=== PATIENT | male | born 1955 | race Caucasian/White ===

== ENCOUNTER → 2018-07-31 | Outpatient (CLI) | payer OTHER ==
--- NOTE | 2018-07-31 15:44 | US ---
EXAMINATION TYPE: US carotid duplex BILAT DATE OF EXAM: 07/31/2018 COMPARISON: NONE CLINICAL HISTORY: R09.89 Carotid Bruit. RT CCA bruit, HTN- on meds, No hx of tia EXAM MEASUREMENTS: RIGHT: Peak Systolic Velocity (PSV) cm/sec ----- Right CCA: 93.0 ----- Right ICA: 96.5 ----- Right ECA: 146.3 ICA/CCA ratio: 1.0 RIGHT: End Diastole cm/sec ----- Right CCA: 17.1 ----- Right ICA: 30.5 ----- Right ECA: 20.4 LEFT: Peak Systolic Velocity (PSV) cm/sec ----- Left CCA: 91.9 ----- Left ICA: 113.4 ----- Left ECA: 145.9 ICA/CCA ratio: 1.2 LEFT: End Diastole cm/sec ----- Left CCA: 21.5 ----- Left ICA: 22.8 ----- Left ECA: 19.9 VERTEBRALS (direction of flow): Right Vertebral: Antegrade Left Vertebral: Antegrade Rhythm: Normal Grayscale images show no significant focal plaque at carotid bulb level bilaterally. Velocity measure ments and ratios and visualized portion of both internal carotid arteries is within normal limits. IMPRESSION: No hemodynamically significant stenosis seen in either internal carotid artery. Criteria for Assigning % of Stenosis / Diameter reduction (Estimation based on the indirect measurements of the internal carotid artery velocities (ICA PSV). 1. Normal (no stenosis)=ICA PSV < 125 cm/s: ratio < 2.0: ICA EDV<40 cm/s. 2. Less than 50% stenosis=ICA PSV < 125 cm/s: ratio < 2.0: ICA EDV<40 cm/s. 3. 50 to 69% stenosis=ICA PSV of 125 to 230 cm/s: ration 2.0 ? 4.0: ICA EDV 40-100 cm/s. 4. Greater than 70% stenosis to near occlusion= ICA PSV > 230 cm/s: ratio > 4.0: ICA EDV > 100 cm/s. 5. Near occlusion= ICA PSV velocities may be low or undetectable: variable ratio and ICA EDV. 6. Total occlusion=unable to detect flow.
== END | disposition home or self-care (01) ==
LOC: RADUSWWP 14:45
PROVIDERS: ATTEND Family Medicine
DX: R09.89 Other specified symptoms and signs involving the circulatory and respiratory systems (principal)
CPT/HCPCS: 93880

== ENCOUNTER → 2019-06-17 | Outpatient (CLI) | payer OTHER ==
--- NOTE | 2019-06-17 15:42 | XR ---
Right shoulder HISTORY: Pain 3 views of the right shoulder Distal acromion is downturned. Right lung apex as visualized is normal. Bone mineralization, joint sp aces and alignment are maintained. IMPRESSION: Correlate for impingement. Shoulder MRI may be of benefit.
== END | disposition home or self-care (01) ==
LOC: RAD 11:15
PROVIDERS: ATTEND Family Medicine
DX: M25.511 Pain in right shoulder (principal)

== ENCOUNTER → 2021-04-05 | Outpatient (CLI) | payer OTHER ==
[~2021-04-05] MED LIST: CASIRIVIMAB/IMDEVIMAB (EUA) 1,200 MG in SODIUM CHLORIDE 0.9% 100 ML IVPB NR; SODIUM CHLORIDE 0.9% 50 ML IVPB NR; SODIUM CHLORIDE 0.9% 500 ML 500 ML in EMPTY BAG 1 BAG IV PRN
[2021-04-05 11:16] VITALS: RESP 16; TEMP 98
[2021-04-05 11:48] VITALS: BP 146/81; PULSE 66
== END ==
LOC: PROCWHC3 10:08
PROVIDERS: ATTEND Family Medicine
DX: U07.1 COVID-19 (principal); I11.9 Hypertensive heart disease without heart failure; Z88.1 Allergy status to other antibiotic agents
CPT/HCPCS: 96360; Q0243; M0243; 96361

== ENCOUNTER → 2021-06-14 | Outpatient (CLI) | payer OTHER ==
--- NOTE | 2021-06-14 09:49 | US ---
EXAMINATION TYPE: US carotid duplex BILAT DATE OF EXAM: 06/14/2021 COMPARISON: Carotid ultrasound July 31, 2018 CLINICAL HISTORY: R09.89 SYMPTOMS SIGNS INVOLVING CIRCULATORY AND RESPIRATORY SY. Syncope EXAM MEASUREMENTS: RIGHT: Peak Systolic Velocity (PSV) cm/sec ----- Right CCA: 96.3 ----- Right ICA: 130.2 ----- Right ECA: 182.6 ICA/CCA ratio: 1.4 RIGHT: End Diastole cm/sec ----- Right CCA: 18.2 ----- Right ICA: 18.7 ----- Right ECA: 22.3 LEFT: Peak Systolic Velocity (PSV) cm/sec ----- Left CCA: 123.7 ----- Left ICA: 116.0 ----- Left ECA: 184.9 ICA/CCA ratio: 0.9 LEFT: End Diastole cm/sec ----- Left CCA: 22.8 ----- Left ICA: 26.7 ----- Left ECA: 22.3 VERTEBRALS (direction of flow): Right Vertebral: Antegrade Left Vertebral: Antegrade Rhythm: Normal Heterogeneous plaque bilaterally with slightly elevated velocities bilaterally Mild to moderate peripheral plaque symmetric carotid bulbs bilaterally redemonstrated. Upper limits o f normal to increased peak systolic velocity in the bilateral common carotid arteries. Internal carot id arteries have peak systolic velocities upper limits of normal to mildly enlarged without abnormal ratio or abnormal end-diastolic velocities. IMPRESSION: Mild to moderate atherosclerotic changes bilaterally redemonstrated . No hemodynamically significant stenosis clearly seen. No significant change from prior ultrasound. Correlate clinically for underlying hypertension is advised. Criteria for Assigning % of Stenosis / Diameter reduction (Estimation based on the indirect measurements of the internal carotid artery velocities (ICA PSV). 1. Normal (no stenosis)=ICA PSV < 125 cm/s: ratio < 2.0: ICA EDV<40 cm/s. 2. Less than 50% stenosis=ICA PSV < 125 cm/s: ratio < 2.0: ICA EDV<40 cm/s. 3. 50 to 69% stenosis=ICA PSV of 125 to 230 cm/s: ration 2.0 ? 4.0: ICA EDV 40-100 cm/s. 4. Greater than 70% stenosis to near occlusion= ICA PSV > 230 cm/s: ratio > 4.0: ICA EDV > 100 cm/s. 5. Near occlusion= ICA PSV velocities may be low or undetectable: variable ratio and ICA EDV. 6. Total occlusion=unable to detect flow.
== END | disposition home or self-care (01) ==
LOC: RADUSWWP 09:04
PROVIDERS: ATTEND Family Medicine
DX: I65.23 Occlusion and stenosis of bilateral carotid arteries (principal)
CPT/HCPCS: 93880

== ENCOUNTER → 2022-06-18 | Outpatient (CLI) | payer OTHER ==
--- NOTE | 2022-06-18 11:18 | US ---
EXAMINATION TYPE: US carotid duplex BILAT DATE OF EXAM: 06/18/2022 COMPARISON: Carotid ultrasound 06/14/2021 CLINICAL HISTORY: I70.8 ATHEROSCLEROSIS RT CAROTID. TECHNIQUE: Carotid duplex ultrasound examination. Indirect Doppler criteria was utilized. FINDINGS: EXAM MEASUREMENTS: RIGHT: Peak Systolic Velocity (PSV) cm/sec ----- Right CCA: 116 ----- Right ICA: 144 ----- Right ECA: 253 ICA/CCA ratio: 1.24 RIGHT: End Diastole cm/sec ----- Right CCA: 21.7 ----- Right ICA: 40.3 ----- Right ECA: 38.7 LEFT: Peak Systolic Velocity (PSV) cm/sec ----- Left CCA: 146 ----- Left ICA: 147 ----- Left ECA: 230 ICA/CCA ratio: 1.01 LEFT: End Diastole cm/sec ----- Left CCA: 29.1 ----- Left ICA: 25.3 ----- Left ECA: 31.2 VERTEBRALS (direction of flow): Right Vertebral: Antegrade Left Vertebral: Antegrade Rhythm: Normal [employer] NOTES: Mild to moderate plaque bilateral bifurcations. Increased velocities bilateral ECA 's. generally increased velocities left CCA and ICA IMPRESSION: Mild to moderate atherosclerotic changes bilaterally redemonstrated. No hemodynamically significant s tenosis demonstrated. No significant change from prior ultrasound. Criteria for Assigning % of Stenosis / Diameter reduction (Estimation based on the indirect measurements of the internal carotid artery velocities (ICA PSV). 1. Normal (no stenosis)=ICA PSV < 125 cm/s: ratio < 2.0: ICA EDV<40 cm/s. 2. Less than 50% stenosis=ICA PSV < 125 cm/s: ratio < 2.0: ICA EDV<40 cm/s. 3. 50 to 69% stenosis=ICA PSV of 125 to 230 cm/s: ration 2.0 ? 4.0: ICA EDV 40-100 cm/s. 4. Greater than 70% stenosis to near occlusion= ICA PSV > 230 cm/s: ratio > 4.0: ICA EDV > 100 cm/s. 5. Near occlusion= ICA PSV velocities may be low or undetectable: variable ratio and ICA EDV. 6. Total occlusion=unable to detect flow.
== END | disposition home or self-care (01) ==
LOC: RADUSWWP 10:35
PROVIDERS: ATTEND Family Medicine
DX: I65.23 Occlusion and stenosis of bilateral carotid arteries (principal)
CPT/HCPCS: 93880

== ENCOUNTER → 2023-08-02 | Outpatient (CLI) | payer MEDICARE, OTHER ==
--- NOTE | 2023-08-04 17:55 | MR ---
EXAMINATION TYPE: MR shoulder LT wo con DATE OF EXAM: 08/02/2023 COMPARISON: Outside radiograph 07/25/2023 HISTORY: 68-year-old male M25.512 Left shoulder pain TECHNIQUE: Multiplanar, multisequence imaging of the left shoulder is performed without contrast. FINDINGS: There is inhomogeneous signal of the long head biceps tendon at the junction of the intracapsular and extracapsular portions and slight medial perching of the biceps tendon along the upper bicipital chasity ove. Mild to moderate tenosynovial fluid is noted. Very heterogeneous subscapularis tendon with large areas of partial tearing. Some attritional tear is also present. The majority of the tendon appears to remain intact at this time. [id number] degenerative change at the acromioclavicular joint with joint space narrowing and re active subchondral marrow signal change. There is a large full-thickness tear involving the entire supraspinatus tendon. Contiguous tear exten ds to involve the anterior fibers of the infraspinatus tendon. This measures 3.0 cm AP and with stump retracted nearly to the glenoid by 4.3 cm. There is mild to moderate glenohumeral joint effusion ext ending into the intervening gap and subacromial bursa. Minimal fatty streaks within both supraspinatus and infraspinatus muscle bellies but no significant m uscle volume loss at this time. The glenohumeral joint appears intact. No discrete labral tear or paralabral cyst at this time. No Hill-Sachs deformity or os acromiale. No suspicious bone marrow replacement. IMPRESSION: 1. Large full-thickness tear of the entire supraspinatus tendon. Contiguous tear extends to involve t he anterior fibers of the infraspinatus tendon (3.0 cm AP) with stump retracted by 4.3 cm, nearly to the glenoid. 2. Large partial-thickness tears of the subscapularis tendon along with attritional tearing. The nohemy rity of the tendon appears to remain intact at this time. 3. Only minimal fatty streaks noted within the supraspinatus and infraspinatus muscle bellies. 4. Severe focal tendinosis of the long head biceps tendon at the junction of the intracapsular and ex tracapsular portions. Mild tenosynovitis.
== END | disposition home or self-care (01) ==
LOC: RADMRIMAIN 05:57
PROVIDERS: ATTEND Orthopaedic Surgery
DX: M75.122 Complete rotator cuff tear or rupture of left shoulder, not specified as traumatic (principal); M67.814 Other specified disorders of tendon, left shoulder; M65.812 Other synovitis and tenosynovitis, left shoulder